=== PATIENT | female | born 1950 | race Two or more races ===

== ENCOUNTER 2016-10-24 21:24 | Emergency (ER) | payer BC ==
[~2016-10-24] VITALS: Ht 152.4 cm; Wt 69.9 kg
[2016-10-24 21:30] VITALS: BP 167/77
[2016-10-24] MEDS ORDERED: AMLO2.5T2 PO (21:42)
--- NOTE | 2016-10-24 22:26 | PHYS DOC ---
Past Medical History Past Medical History: Hypertension Past Surgical History: Other Additional Past Surgical Histo: HEMMORIDS Alcohol Use: None Drug Use: None Adult General Chief Complaint Chief Complaint: HEMORRHOIDS HPI HPI Patient is a 66 year old female who presents to the ER today secondary to rectal pain. Patient reports she has not complained from [place] and came straight to the ER secondary to pain. Upon further evaluation of the patient and discussion with her youth services librarian the patient appears to have been worked up in [place] for possible hemorrhoids. Patient had a double contrast GI study performed that revealed a possible mass and recommended biopsy. 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 Patient reports that she came here because the procedure was slightly too expensive to [place] and [place] and felt that would be her best option. Patient is a patient of Dr. russell. She currently has no other complaints. Patient denies any fevers shakes chills nausea vomiting diarrhea. Patient has any chest pain or shortness of breath. Patient has any cough cold runny nose. Review of systems: Constitutional: Denies fever or chills Eyes: Denies change in visual acuity, redness, or eye pain HENT: Denies nasal congestion or sore throat All other review systems are negative except as documented in the history of present illness portion. Physical exam: Constitutional: Cachectic appearing no acute distress, non-toxic appearance. HENT: Normocephalic, atraumatic, bilateral external ears normal, oropharynx moist, no oral exudates, nose normal. Eyes: PERRLA, EOMI, conjunctiva normal, no discharge. Neck: Normal range of motion, no tenderness, supple, no stridor Cardiovascular:Heart rate regular rhythm Lungs & Thorax: Bilateral breath sounds clear to auscultation Abdomen: Soft nondistended no rebound or guarding no tenderness at McBurney's point, Christian's sign, patient has normal active bowel sounds, she has mild diffuse tenderness to palpation. Skin: Warm, dry, no erythema, no rash. Back: No tenderness, no CVA tenderness. Patient has pain to his lower back or reports this is chronic. Patient has no new tenderness Extremities: No tenderness, no cyanosis, no clubbing, ROM intact, no edema. Neurologic: Alert and oriented X 3, normal motor function, normal sensory function, no focal deficits noted. Psychologic: Affect normal, judgement normal, mood normal. Rectal exam reveals masses that are palpable in the internal rectal region that are nontender. 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 Patient is here from [place] for further evaluation and workup. Patient does have a primary care doctor here in [place]. Patient has been instructed to give her primary care physician a call on Thursday to arrange for follow-up. I have called her primary care doctor, Dr. Everett LUJAN who [facility] really [facility] Patient was informed of this and she will need to arrange for follow-up with him as soon as possible so that he can assist her with her evaluation and treatment of her adenocarcinoma. Patient is otherwise clinically and hemodynamically stable. Patient currently does not have any acute issues that we'll need further ER evaluation or inpatient evaluation at this time. Allergies Allergies Allergies Coded Allergies Type Severity Reaction Last Updated Verified No Known Drug Allergies 10/24/16 No Current Patient Data Vital Signs Vital Signs Date Time Temp Pulse Resp B/P (MAP) Pulse Ox O2 Delivery O2 Flow Rate FiO2 10/24/16 21:30 98.0 99 20 98 Room Air 98.0 EKG EKG [] Radiology/Procedures Radiology/Procedures [] Course & Med Decision Making Course & Med Decision Making Pertinent Labs and Imaging studies reviewed. (See chart for details) [] Dragon Disclaimer Dragon Disclaimer This electronic medical record was generated, in whole or in part, using a voice recognition dictation system. Departure Departure Impression: Primary Impression: Adenocarcinoma of rectum Disposition: HOME, SELF-CARE Condition: STABLE Referrals: NO PCP (PCP) MARLENE THOMPSON MD Patient Instructions: Colorectal Cancer Additional Instructions: Please call up her doctor as soon as possible to set up an appointment for that he can help her with her ranging to be seen by a oncologist. I have also given you the phone number for Dr. Thompson he is a oncologist that you can call. MELANY PAVON MD Oct 24, 2016 22:26
== END 2016-10-24 22:44 | disposition home or self-care (01) ==
LOC: ER 21:24
DX: C20 Malignant neoplasm of rectum (principal); I10 Essential (primary) hypertension
CPT/HCPCS: 99283

== ENCOUNTER → 2016-10-30 | Outpatient (CLI) | payer SELFPAY ==
[2016-10-24 21:30] VITALS: BP 167/77
[~2016-10-30] MED LIST: AMLO2.5T2 PO; IOHEXOL 240 MG/ML 50ML VIAL. PO ONE; IOHEXOL 300 MG/ML 75 ML VIAL IV ONE; LISI1TAB3 PO
[2016-10-30 13:08] LABS: CREATININE 0.7 mg/dL (0.6-1.0)
--- NOTE | 2016-10-30 16:05 | RAD ---
CT abdomen/pelvis with contrast 10/30/2014 at 1353 hours Indication: Rectal mass Comparison: None available Technique: Multiple axial CT images of the abdomen and pelvis were obtained after the administration of 75 mL Omnipaque 300 intravenously. Coronal and sagittal reformats are provided. Findings: Lung bases are clear. Heart size is within normal limits. Liver is homogenous without evidence for a focal mass lesion. Portal venous system is patent. No intrahepatic or extrahepatic biliary ductal dilatation. Gallbladder is present without adjacent inflammatory changes. Spleen, bilateral adrenal glands, and pancreas are within normal limits. The abdominal aorta is normal in course and caliber. There are no enlarged lymph nodes in the abdomen and pelvis. There is no abdominal free fluid. No free intraperitoneal air. There is an exophytic 8 mm cyst involving the midpole the left kidney. There is a 3.3 cm simple appearing cyst arising from the inferior pole the right kidney. No suspicious renal masses. No hydronephrosis. There is circumferential wall thickening involving the rectum. There is a right perirectal lymph node measuring 7 mm, indeterminate. No evidence for bowel obstruction. Small and large bowel loops are normal in caliber. A normal appendix is visualized. Urinary bladder is normal. Uterus and adnexa are within normal limits. No suspicious osseous lesions are identified. Impression: 1. Circumferential rectal wall thickening. There is adjacent 7 mm right perirectal lymph node which is indeterminate. Otherwise, no pathologically enlarged lymph nodes are identified within the abdomen and pelvis. 2. No evidence for hepatic metastasis. PQRS Compliance Statement: One or more of the following individualized dose reduction techniques were utilized for this examination: 1. Automated exposure control 2. Adjustment of the mA and/or kV according to patient size 3. Use of iterative reconstruction technique
== END | disposition home or self-care (01) ==
LOC: CT 12:14
PROVIDERS: ATTEND Internal Medicine Gastroenterology
DX: K62.89 Other specified diseases of anus and rectum (principal)
CPT/HCPCS: 36415; 74177; 82565; 84520; Q9966; Q9967

== ENCOUNTER → 2016-11-11 | Day surgery (SDC) | payer MEDICARE ==
[~2016-11-11] MED LIST changes: +IBUP-1027 PO; -IOHEXOL 240 MG/ML 50ML VIAL. PO ONE; -IOHEXOL 300 MG/ML 75 ML VIAL IV ONE; +LORA10TA68 PO; +PROPOFOL 20 ML IV ONE
--- NOTE | 2016-11-11 09:12 | PDOC1 ---
HISTORY & PHYSICAL H&P Gill Schreiber [id number] 1950 10/28/2016 02:10 PM 03/16 [facility], [facility] OUR PATIENTS COME FIRST [address] [place] [id number] Ph. [phone] Patient: Gill Schreiber Date of : 1950 Date: 10/28/2016 2:10 PM Visit Type: Consult This 66 year old female presents for Colorectal Cancer. History of Present Illness: 1. Colorectal Cancer Patient had issue with rectal pain and bleeding for about one year. She finally visited her doctor in [place] 7 moths later and had bx of rectal mass. It was originally not conclusive. She had second bx done and it does show carcinoma but cell type could be epithelial and or adenomatous feature. This was all done in [place]. She is her now for further evaluation and treatment INTAKE COMMENTS: Intake Comments: Nurse Note: the pt is here today due to an abnormal biopsy [place]. PROBLEM LIST: Problem Description Onset Date Chronic Notes Hypertension 10/28/2016 Y PAST MEDICAL/SURGICAL HISTORY (Detailed) Disease/disorder Onset Date Management Date Comments thyroid glands removed 2014 Hypertension Medications (Active): Started Medication Directions Instruction Stopped 07/23/2016 amlodipine 5 mg tablet take 1 tablet by oral route every day 10/27/2016 Lortab 5 mg-325 mg tablet take 1 tablet by oral route every 6 hours as needed for pain Allergies: Ingredient Reaction Medication Name Comment NO KNOWN ALLERGIES REVIEW OF SYSTEMS System Neg/Pos Details Constitutional Negative Chills, fever, malaise and weight loss. ENMT Negative Sore throat. Eyes Negative Double vision. Respiratory Negative Dyspnea and wheezing. Cardio Negative Chest pain and irregular heartbeat/palpitations. GI Positive See HPI. GI Negative See HPI. Negative Dysuria and hematuria. Endocrine Negative Cold intolerance and heat intolerance. Psych Negative Anxiety. Integumentary Negative Hives and rash. MS Negative Joint pain. Anuj/Lymph Negative Easy bleeding and easy bruising. Allergic/Immuno Negative Food allergies. VITAL SIGNS Time BP mm/Hg Pulse /min Resp /min Temp F Ht ft Ht in Ht cm Wt lb Wt kg BMI kg/ m2 BSA m2 O2 Sat% 2:47 PM 122/74 85 98.1 5.0 2.00 157.48 150.60 68.311 27.54 96 Time Measured by 2:47 PM Shweta Valderrama PHYSICAL EXAM: Exam Findings Details Constitutional Normal Well developed. Eyes Normal Conjunctiva - Right: Normal, Left: Normal. Sclera - Right: Normal, Left: Normal. Nasopharynx Normal Lips/teeth/gums - Normal. Neck Exam Normal Inspection - Normal. Thyroid gland - Normal. Respiratory Normal Inspection - Normal. Auscultation - Normal. Cardiovascular Normal Regular rate and rhythm. No murmurs, gallops, or rubs. Vascular Normal Pulses - Carotids: Normal, Femoral: Normal, Dorsalis pedis: Normal. Abdomen Normal Inspection - Normal. Anterior palpation - No guarding. No abdominal tenderness. No hepatic enlargement. No splenic enlargement. No hernia. No Ascites. Rectal * Rectal ledbetter - Findings: mass(es), Location: Anal canal., Description: non tender. Skin Normal Inspection - Normal. Extremity Normal No edema. Psychiatric Normal Oriented to time, place, person, and situation. Appropriate mood and effect. Assessment/Plan # Detail Type Description 1. Assessment Rectal mass (K62.9). Patient Plan schedule colonoscopy . Schedule Ct abdomen and pelvis. Plan Orders Further diagnostic evaluations ordered today include(s) Abdomen and Pelvis CT WITH Contrast and Colonoscopy to be performed today. She is to schedule a follow-up visit with Cain Ferreira MD upon completion of work-up Electronically signed by: Cain Ferreira MD 10/28/2016 03:34 PM Document generated by: Cain Ferreira 10/28/2016 03:34 PM Marilyn Oshea MD, [facility]; David Castrejon MD Internal Medicine; Jessica Villa MD, Internal Medicine; Lam Ferreira MD Internal Medicine; Cain Ferreira MD, Gastroenterology; Micha Horton MD, Rheumatology, S. Servando Du, Physical Medicine/Rehab Tae Seaman APRN ------ 11/11/16 Patient seen and examined. No change in H&P. CAIN FERREIRA MD Nov 11, 2016 09:12
[2016-11-11 09:40] VITALS: BP 159/84
--- NOTE | 2016-11-12 11:54 | PATHOLOGY ---
PATHOLOGY REPORT * * * * * * * * FINAL DIAGNOSIS: Colonic mucosa, "rectal mass, biopsy": - Invasive moderate to poorly differentiated adenocarcinoma. - See comment. (SHA:mike; 11/12/2016) COMMENT: This case is also reviewed by Dr. Tae Suárez. Nurse Genie Zuñiga was informed of the diagnosis on 11/12/2016 at 10am. (SHA:mike; 11/12/2016) REPORT ELECTRONICALLY SIGNED BY: Anderson Sanders M.D. DATE/TIME: 11/12/2016 11:53 * * * * * * * * GROSS PATHOLOGY: Received in formalin labeled "Gill Rocha, rectal mass," are multiple segments of jennings soft tissue measuring from less than 0.1 up to 0.3 cm in maximum dimension. The specimen is submitted entirely in cassette A1. ([facility]; 11/11/16) INITIAL CPT CODE(S): A; 57905 Professional services performed [place] [facility] [address] Technical services performed by [facility] at [address] [place] [address]. SPECIMEN(S) RECEIVED: A.Rectal mass CLINICAL HISTORY: Rectal mass PATIENT: GILL ROCHA /AGE: 5 1950 (Age: 66) PATIENT #: [id number] ALT CASE #: SPECIMEN COLLECTION DATE: 11/11/2016 SPECIMEN RECEIVED DATE: 11/11/2016 [facility] - [address] [place] [address] - PHONE: [phone] * * * END OF REPORT * * *
== END | disposition home or self-care (01) ==
LOC: ENDOS 08:39
PROVIDERS: ATTEND Internal Medicine Gastroenterology
DX: D49.0 Neoplasm of unspecified behavior of digestive system (principal); C20 Malignant neoplasm of rectum; I10 Essential (primary) hypertension
CPT/HCPCS: 45380; 88305; J2704

== ENCOUNTER → 2016-12-19 | Outpatient (CLI) | payer SELFPAY ==
[~2016-12-19] VITALS: Ht 157.5 cm; Wt 68.0 kg
[2016-12-19] VITALS (10 sets, daily range): BP systolic 111–147; BP diastolic 60–85
[~2016-12-19] MED LIST changes: +HEPARIN PF 500 UNIT/5 ML DISP.SYRIN. IV ONE; +LIDOCAINE 1%/EPI 1:100,000 20 ML VIAL. INJ ONE; +LIDOCAINE 1%/EPI 1:100,000 20 ML VIAL. ONE; +MIDAZOLAM HCL/PF 5 MG/5 ML VIAL. IV ONE; +MIDAZOLAM HCL/PF 5 MG/5 ML VIAL. ONE; +ONDANSETRON PF 4 MG/2 ML VIAL. IV ONE; +ONDANSETRON PF 4 MG/2 ML VIAL. ONE; -PROPOFOL 20 ML IV ONE; +VANCOMYCIN 1GM IVPB FOR OMNI 250 ML IV ONE; +VANCOMYCIN 1GM IVPB FOR OMNI 250 ML ONE; +fentaNYL PF VIAL 250 MCG/5 ML VIAL IV ONE; +fentaNYL PF VIAL 250 MCG/5 ML VIAL ONE
[2016-12-19 07:33] LABS: BASO % 0 % (0-3); EOS % 3 % (0-3); HEMATOCRIT 41.3 % (36.0-47.0); HEMOGLOBIN 13.6 g/dL (12.0-15.5); LYMPH # 2.8 x10^3/uL (1.0-4.8); LYMPH % 39 % (24-48); MEAN CORPUSCULAR HEMOGLOBIN 29 pg (25-35); MEAN CORPUSCULAR HGB CONC 33 g/dL (31-37); MEAN CORPUSCULAR VOLUME 87 fL (79-100); MONO % 7 % (0-9); NEUT % 51 % (31-73); PLATELET COUNT 209 x10^3/uL (140-400); RED BLOOD COUNT 4.77 x10^6/uL (3.50-5.40); RED CELL DISTRIBUTION WIDTH 14.3 % (11.5-14.5); WHITE BLOOD COUNT 7.1 x10^3/uL (4.0-11.0)
[2016-12-19 07:44] LABS: PROTHROMBIN TIME PATIENT 12.4 SEC (11.7-14.0)
--- NOTE | 2016-12-19 08:04 | PDOC1 ---
History and Physical Date of Procedure Date of Admission 12/19/16 Procedure Procedure Port placement Indication Indication Rectal Cancer History of Present Illness Reason for Visit Port placement for rectal cancer treatment Past Medical History Past Medical History HTN Past Surgical History Past Surgical History Thyroidectomy Current Medications Current Medications Current Medications Lidocaine/ Epinephrine (Xylocaine 1%-Epi 1:100,000) 20 ml STK-MED ONCE .ROUTE ; Start 12/19/16 at 07:47; Stop 12/19/16 at 07:48; Status DC Heparin Sodium (Porcine) (Hep Lock Adult) 500 unit STK-MED ONCE IV ; Start 12/19 at 07:47; Stop 12/19/16 at 07:48; Status DC Heparin Sodium/ Sodium Chloride 500 ml @ As Directed STK-MED ONCE .ROUTE ; Start 12/19/16 at 07:47; Stop 12/19/16 at 07:48; Status DC Vancomycin HCl 250 ml @ As Directed STK-MED ONCE .ROUTE ; Start 12/19/16 at 07: 53; Stop 12/19/16 at 07:54; Status DC Active Scripts Active Reported Claritin (Loratadine) 10 Mg Tablet 1 Tab PO DAILY Ibuprofen 400 Mg Tablet 400 Mg PO PRN Q6HRS PRN Norvasc (Amlodipine Besylate) 2.5 Mg Tablet 5 Tab PO DAILY Allergies Allergies: Coded Allergies: No Known Drug Allergies (Unverified , 11/11/16) Physical Exam Other GENERAL: No apparent distress. Alert and oriented. HEENT: Head normocephalic, atraumatic. NECK: Supple LUNGS: Clear to auscultation. HEART: RRR, S1, S2 present, pulses intact ABDOMEN: Soft, positive bowel sounds. EXTREMITIES: No cyanosis or edema. NEUROLOGIC: Normal speech, normal tone PSYCHIATRIC: Normal affect, normal mood. SKIN: No ulceration. Assessment Assessment Rectal cancer Problems: Plan Plan Port placement KAELA KAMARA MD Dec 19, 2016 08:04
--- NOTE | 2016-12-19 09:03 | PDOC ---
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
--- NOTE | 2016-12-19 09:40 | RAD ---
PROCEDURE: Fluoroscopic and Ultrasound Guided Right Port Placement The procedure, risk and complications to include bleeding, infection, air embolism, pneumothorax and arrhythmia, were discussed at length with the patient and they understood and wished to proceed. All questions were answered. Consent form signed. The right neck and chest region were prepped and draped using maximal sterile technique and one percent (1%) Xylocaine was used for local anesthesia. Ultrasound-guided access: Ultrasound evaluation showed the right jugular vein to be patent and compressible and under ultrasound guidance a single wall puncture was made followed by tract dilation and placement of a sheath. An ultrasound image was saved and sent to PACS. Next, an incision was made in an infraclavicular location and a pocket created. The pocket was washed with copious amounts of saline until dry. A tunnel was created between the pocket and neck incision and the port connected and tested for function and is intact. A single lumen Bard Power Port was inserted into the pocket followed by catheter placement into the mid right atrium under fluoroscopic guidance. The port was flushed with 100 units/ml CORRECTION Heparin. Fluoroscopic spot image: One view. The chest port is in a satisfactory location and the catheter tip at the superior cavoatrial junction. Negative for pneumothorax. The deep subcutaneous layers were closed with interrupted 3-0 Vicryl as well as 4-0 Vicryl running subcutaneous sutures. Steri-Strips were applied and the wounds dressed. Complications: None Contrast: None Sedation: Conscious sedation for 40 mins. Intravenous fentanyl and Versed were administered. The patient was monitored by pulse oximetry and cardiovascular monitoring equipment and observed by the nurses in attendance. Fluoroscopy time: 0.7 mins Exposures: 1 Gycm2 The patient tolerated the procedure well and was observed in the recovery area. Conclusion: Ultrasound and fluoroscopic guided right single lumen port-A-Cath placement.
== END | disposition home or self-care (01) ==
LOC: INTRAD 06:41
PROVIDERS: ATTEND Internal Medicine Hematology & Oncology
DX: C20 Malignant neoplasm of rectum (principal); I10 Essential (primary) hypertension; Z98.890 Other specified postprocedural states
CPT/HCPCS: 36415; 36561; 76937; 77001; 85025; 85610; C1751; C1892; J0690; J1644; J2250; J3010; J3370; J3490; 99152; 99153

== ENCOUNTER 2017-05-11 14:44 | Emergency (ER) | payer MEDICARE, MEDICAID ==
[2017-05-11] MEDS: LIDOCAINE 2%/EPI 1:100,000 20 ML VIAL. IJ (17:28)
[2017-05-11 17:30] LABS: ADD MAN DIFF? NO
[2017-05-11 17:32] LABS: BASO % 0 % (0-3); EOS # 0.2 x10^3/uL (0.0-0.7); EOS % 6 % (0-3); HEMOGLOBIN 11.1 g/dL (12.0-15.5); LYMPH # 0.8 x10^3/uL (1.0-4.8); LYMPH % 18 % (24-48); MEAN CORPUSCULAR HEMOGLOBIN 26 pg (25-35); MEAN CORPUSCULAR HGB CONC 33 g/dL (31-37); MEAN CORPUSCULAR VOLUME 79 fL (79-100); MONO # 0.4 x10^3/uL (0.0-1.1); MONO % 9 % (0-9); NEUT # 2.7 x10^3uL (1.8-7.7); NEUT % 66 % (31-73); PLATELET COUNT 298 x10^3/uL (140-400); RED CELL DISTRIBUTION WIDTH 15.9 % (11.5-14.5); WHITE BLOOD COUNT 4.1 x10^3/uL (4.0-11.0)
[2017-05-11 17:40] LABS: ANION GAP 8 (6-14); BLOOD UREA NITROGEN 15 mg/dL (7-20); CALCIUM 9.1 mg/dL (8.5-10.1); CARBON DIOXIDE 27 mmol/L (21-32); CHLORIDE 100 mmol/L (98-107); CREATININE 0.8 mg/dL (0.6-1.0); GLUCOSE 108 mg/dL (70-99); POTASSIUM 4.1 mmol/L (3.5-5.1); SODIUM 135 mmol/L (136-145)
== END 2017-05-11 18:57 | disposition home or self-care (01) ==
LOC: ER 14:44
DX: L02.414 Cutaneous abscess of left upper limb (principal); I10 Essential (primary) hypertension
CPT/HCPCS: 10060; 36415; 80048; 85025; 99284-25; J3490